=== PATIENT | female | born 1965 | race Caucasian/White ===

== ENCOUNTER 2020-09-06 04:22 | Day surgery (SDC) | payer OTHER ==
[2020-09-04 10:51] VITALS: BMI 42.9
[~2020-09-06 04:22] MED LIST: BUPIVACAINE HCL/PF 0.5% (5MG/ML) 10 ML VIAL IJ ONE
[2020-09-06] MEDS ORDERED: PROPOFOL 20 ML ONE ×2 (10:11)
[2020-09-06] MEDS ORDERED: MIDAZOLAM HCL 2 MG/2 ML SINGLE DOSE VIAL ONE (10:11)
[2020-09-06] MEDS ORDERED: ceFAZolin SODIUM 1 GM VIAL ONE (10:12)
[2020-09-06] MEDS ORDERED: DEXAMETHASONE SOD PHOSPHATE 4 MG/1 ML VIAL ONE (10:12)
[2020-09-06] MEDS ORDERED: LIDOCAINE HCL/PF 2% SDV 5ML VIAL ONE (10:12)
[2020-09-06] MEDS ORDERED: KETOROLAC TROMETHAMINE 30 MG/1 ML VIAL ONE (10:12)
[2020-09-06] MEDS ORDERED: ROCURONIUM BROMIDE 50 MG/5 ML SYRINGE ONE ×2 (10:15→12:00)
[2020-09-06] MEDS ORDERED: ceFAZolin SODIUM 1 GM VIAL IVPB ONE (11:17)
[2020-09-06] MEDS ORDERED: ONDANSETRON 4 MG/2 ML VIAL IVPUSH PRN (11:28)
[2020-09-06] MEDS ORDERED: LACTATED RINGERS SOLUTION 1,000 ML IV SCH (11:30)
[2020-09-06] MEDS ORDERED: GLYCOPYRROLATE 0.2 MG/1 ML VIAL ONE (12:02)
[2020-09-06] MEDS ORDERED: BUPIVACAINE HCL/PF 0.5% (5MG/ML) 10 ML VIAL IJ ONE ×2 (12:09)
[2020-09-06] MEDS ORDERED: oxyCODONE HCL 5 MG TABLET PO PRN (12:29)
[2020-09-06] MEDS ORDERED: ACETAMINOPHEN 1000 MG/100 ML VIAL (NON FORMULARY) IVPB PRN (12:29)
[2020-09-06] MEDS ORDERED: MONTELUKAST NA 10 MG TABLET PO PRN (12:33)
[2020-09-06] MEDS ORDERED: ACETAMINOPHEN INJECTION 100 ML IVPB ONE (14:52)
[2020-09-06] MEDS ORDERED: ONDANSETRON 4 MG/2 ML VIAL ONE (15:43)
[2020-09-06 17:19] VITALS: BP 143/80; PULSE 63; TEMP 97.8
== END 2020-09-06 17:20 | disposition home or self-care (01) ==
LOC: JASU-SURG 04:22
PROVIDERS: ATTEND Surgery
PROC: 0FT44ZZ Resection of Gallbladder, Percutaneous Endoscopic Approach (ICD-10-PCS; principal; 2020-09-06 11:30)
DX: K80.10 Calculus of gallbladder with chronic cholecystitis without obstruction (principal)
CPT/HCPCS: 81025; 88304-TC; 93005; 93010; 94760; J0131